=== PATIENT | male | born 1950 | race Caucasian/White ===

== ENCOUNTER 2017-08-24 20:04 | Emergency (ER) | payer MEDICARE, OTHER ==
[2017-08-24 20:34] LABS: APPEARANCE,URINE Clear; BILIRUBIN,URINE NEGATIVE (NEGATIVE); COLOR,URINE Yellow; GLUCOSE, URINE (UA) NEGATIVE (NEGATIVE); KETONES,URINE NEGATIVE (NEGATIVE); LEUKOCYTE ESTERASE ,URINE NEGATIVE (NEGATIVE); NITRATE,URINE NEGATIVE (NEGATIVE); OCCULT BLOOD,URINE NEGATIVE (NEG-TRACE)
[2017-08-24 20:46] LABS: BACTERIA RARE (< 1+); CRYSTALS NEGATIVE (0-3 AVE/HPF); RBC,URINE NEG (0-3AV/HPF); WBC,URINE 0-2 (0-5AV/HPF)
[2017-08-24 21:23] LABS: LACTIC ACID 1.2 mMol/L (0.0-2.0)
[2017-08-24 21:33] LABS: HEMATOCRIT 41 % (39-53); HEMOGLOBIN 14.7 gm/dl (13.5-17.7); MEAN CORPUSCULAR HEMOGLOBIN 32.3 pg (27.0-32.0); MEAN CORPUSCULAR HGB CONC 36.2 gm/dl (32.0-36.0); MEAN CORPUSCULAR VOLUME 89 fL (80-100)
[2017-08-24 21:34] LABS: ALBUMIN 3.5 gm/dl (3.4-5.0); BILIRUBIN,TOTAL 0.6 mg/dl (0.2-1.0); CALCIUM 8.3 mg/dl (8.5-10.1); CARBON DIOXIDE 30.9 mEq/L (21-32); CREATININE 1.2 mg/dl (0.80-1.30); POTASSIUM 4.4 mMol/L (3.5-5.1)
[2017-08-24 21:42] LABS: BAND NEUTROPHILS % (MANUAL) 1 %; BASOPHILS % (MANUAL) 0 % (0-3); EOSINOPHILS % (MANUAL) 0 % (0-9); LYMPHOCYTES % (MANUAL) 15 % (10-50); MONOCYTES % (MANUAL) 9 % (0-12); NEUTROPHILS % (MANUAL) 75 % (37-80)
[2017-08-24 21:43] LABS: NORMAL RBCS NORMAL; PLATELET MORPHOLOGY COMMENT NORMAL
[2017-08-24] MEDS ORDERED: SODIUM CHLORIDE 0.9% FLUSH 10 ML SOL IV PRN (21:53)
[2017-08-24] MEDS ORDERED: SODIUM CHLORIDE 0.9% 1000ML 1,000 ML IV SCH (22:00)
[2017-08-24] MEDS ORDERED: MORPHINE SULFATE 10 MG/ML SOL IV ONE (22:31)
[2017-08-24] MEDS ORDERED: ONDANSETRON HCL 4 MG/2 ML SOL IV ONE (22:31)
[2017-08-24] MEDS ORDERED: ONDANSETRON HCL 4 MG/2 ML SOL ONE (22:51)
[2017-08-24] MEDS ORDERED: MORPHINE SULFATE 10 MG/ML SOL ONE (22:51)
[2017-08-24] MEDS ORDERED: METRONIDAZOLE 250 MG TAB PO ONE (23:20)
[2017-08-24] MEDS ORDERED: METRONIDAZOLE 250 MG TAB ONE (23:25)
[2017-08-24] MEDS ORDERED: CIPROFLOXACIN HCL 500 MG TAB PO ONE ×2 (23:27→23:30)
[2017-08-24 23:50] VITALS: RESP 18; TEMP 98.1; O2SAT 97
[2017-08-24 23:51] VITALS: BP 131/66; PULSE 70
== END 2017-08-24 23:45 | disposition home or self-care (01) | DRG 392 ==
LOC: ED 20:04
DX: K57.30 Diverticulosis of large intestine without perforation or abscess without bleeding (principal); R10.30 Lower abdominal pain, unspecified; K57.32 Diverticulitis of large intestine without perforation or abscess without bleeding; R11.2 Nausea with vomiting, unspecified
CPT/HCPCS: 36415; 74176; 80053; 81001; 85007; 85027; 96365; 96374; 96375; 99283; 99285; J2270; J2405; A9270-GY